=== PATIENT | female | born 1955 | race African-American/Black ===

== ENCOUNTER 2021-09-19 08:09 | Emergency (ER) | payer MEDICAID ==
[~2021-09-19] VITALS: Ht 167.6 cm; Wt 68.0 kg
[~2021-09-19 08:09] MED LIST: PROP60CA34 PO; [UNRECOGNIZED DRUG - OTHER]
[2021-09-19] MEDS ORDERED: MECLIZINE HCL 25 MG TAB PO ONE (09:30)
[2021-09-19 09:36] LABS: Basophils # (auto) 0.1 10 ^3/uL (0-0.2); Basophils % (auto) 1.4 % (0.0-2.0); Eosinophils # (auto) 0.1 10 ^3/uL (0-0.8); Eosinophils % (auto) 2.8 % (0.0-7.0); Hemoglobin 14.1 g/dL (12.2-16.2); Lymphocytes # (auto) 1.5 10 ^3/uL (0.4-5.4); Mean Corpuscular Hemoglobin 28.3 pg (28.0-32.0); Mean Corpuscular Hgb Conc. 32.1 g/dL (32.0-36.0); Mean Corpuscular Volume 88.3 fL (80.0-100.0); Monocytes # (auto) 0.3 10 ^3/uL (0-1.3); Monocytes % (auto) 6.7 % (0.0-12.0); Neutrophils # (auto) 2.3 10 ^3/uL (1.6-8.6); Neutrophils % (auto) 54.1 % (37.0-80.0); Nucleated Red Blood Cells % 0.1 %; Red Blood Cells 4.98 10^6/uL (4.0-5.20); Red Cell Distribution Width 14.2 % (11.8-14.3); White Blood Cell 4.3 10^3/uL (4.4-10.8)
[2021-09-19 10:07] LABS: Albumin 3.6 g/dL (3.4-5.0); BUN/Creatinine Ratio 13.2; Bilirubin, Total 0.7 mg/dL (0.2-1.0); Magnesium 2.3 mg/dL (1.6-2.6); Total Protein 8.3 g/dL (6.4-8.2)
[2021-09-19 11:01] VITALS: BP 124/71
== END 2021-09-19 11:01 | disposition home or self-care (01) ==
LOC: ER 08:09
DX: H81.10 Benign paroxysmal vertigo, unspecified ear (principal); I10 Essential (primary) hypertension; N39.0 Urinary tract infection, site not specified; E03.9 Hypothyroidism, unspecified; Z79.899 Other long term (current) drug therapy
CPT/HCPCS: 36415; 70450; 74176; 80053; 82150; 83690; 83735; 84484; 85025; 93005; 99285; J8597

== ENCOUNTER 2023-09-17 16:24 | Emergency (ER) | payer MEDICAID, MEDICARE ==
[~2023-09-17] VITALS: Ht 170.2 cm; Wt 68.1 kg
[2023-09-17] MEDS ORDERED: IBUP200T76 PO (20:58)
[2023-09-17] MEDS ORDERED: HYDR-4902 PO (20:58)
[2023-09-17 21:57] VITALS: BP 133/86; PULSE 72; RESP 72; TEMP 98.4; O2SAT 97
[2023-09-17] MEDS ORDERED: HYDROcodone-ACET 5/325MG TAB PO ONE (22:00)
== END 2023-09-17 22:29 | disposition home or self-care (01) ==
LOC: EDSEX 16:24 → ER 16:24 → EDBD 16:24 → ER 22:16
DX: S32.029A Unspecified fracture of second lumbar vertebra, initial encounter for closed fracture (principal); S33.5XXA Sprain of ligaments of lumbar spine, initial encounter; I10 Essential (primary) hypertension; W18.39XA Other fall on same level, initial encounter; Y93.89 Activity, other specified; Y92.89 Other specified places as the place of occurrence of the external cause; Y99.8 Other external cause status
CPT/HCPCS: 72131; 93005